=== PATIENT | male | born 1995 | race Caucasian/White ===

== ENCOUNTER 2017-03-28 14:13 | Emergency (ER) | payer OTHER ==
[~2017-03-28] VITALS: Ht 167.6 cm; Wt 108.9 kg
--- NOTE | ~2017-03-28 | CR142 ---
[facility]. [facility] A Service of [facility] & [facility] RADIOLOGY TEXT RESULTS PATIENT: SIGIFREDO ARAIZA LOCATION: SED : [birth year] UNIT #: [id number] AGE: [address]: JENNIFER ROJAS SEX: M ORDER DR: [id number] [place] [id number] E MR#: [id number] Acc #: [id number] NAME: SIGIFREDO ARAIZA : 1995 SEX: M STUDY DATE/TIME: 03/28/2017 15:10 UNIT: SED ROOM: STUDY DESCRIPTION: CR Hand Min 3 Views Rt Attending Physician: Jennifer Rojas Aprn Ordering Physician: Jennifer Rojas Aprn MEDICAL IMAGING REPORT This report is preliminary unless electronic signature is present. EXAM Right hand series 03/28/2017 HISTORY 21-year-old male with dorsal right hand soft tissue laceration. Injured by white lead grinder machinery yesterday. TECHNIQUE Three-view right hand series. FINDINGS No fracture or other acute osseous abnormalities demonstrated. No visible radiopaque soft tissue foreign body. IMPRESSION Negative right hand series. Dictated by... Hermilo Long M.D. THIS IS AN ELECTRONICALLY VERIFIED REPORT Hermilo Long M.D. at 03/29/2017 9:50 PM RGW/pcl TD: 03/29/2017 03:28 JOB #: [id number] MEDICAL IMAGING REPORT Page 1 of 1
[~2017-03-28 14:13] MED LIST: FLEXERIL PO; IBUPROFEN PO; ULTRAM PO; VOLTAREN75 MG PO
== END 2017-03-28 16:43 | disposition home or self-care (01) ==
LOC: SED 14:13
DX: S61.411A Laceration without foreign body of right hand, initial encounter (principal); F17.210 Nicotine dependence, cigarettes, uncomplicated; Z23 Encounter for immunization; X58.XXXA Exposure to other specified factors, initial encounter
CPT/HCPCS: 73130; 90471; 90715; 99284